=== PATIENT | male | born 1965 | race Native Hawaiian/Other Pacific Islander ===

== ENCOUNTER 2018-10-23 14:05 | Emergency (ER) | payer OTHER ==
[~2018-10-23] VITALS: Ht 182.9 cm; Wt 124.7 kg
[~2018-10-23 14:05] MED LIST: CEPHALEXIN500 MG PO
[2018-10-23 14:12] VITALS: BP 126/78; TEMP 97.2
[2018-10-23 14:31] LABS: PLATELET COUNT 280 K/uL (142-355)
[2018-10-23 14:41] LABS: POTASSIUM 4.3 mmol/L (3.6-5.2)
[2018-10-23] MEDS ORDERED: FENT50DI TD (16:49)
[2018-10-23] MEDS ORDERED: NICODERM C21 MG/241 TD (16:50)
[2018-10-23] MEDS ORDERED: FURO40TA93 PO (16:50)
[2018-10-23] MEDS ORDERED: BAYER CHEWABLE81 MG PO (16:53)
[2018-10-23] MEDS ORDERED: POTASSIUM CHLO20 ME1 PO (16:55)
[2018-10-23] MEDS ORDERED: MULTIVITAMI1 PO (16:56)
[2018-10-23] MEDS ORDERED: MOBIC15 MG PO (16:56)
[2018-10-23] MEDS ORDERED: DULOXETINE HCL60 MG PO (16:57)
[2018-10-23] MEDS ORDERED: REMERON SOLTAB15 MG PO (17:00)
[2018-10-23] MEDS ORDERED: TYLENOL325 MG PO (17:38)
[2018-10-23] MEDS ORDERED: OXYC5TAB53 PO (17:39)
[2018-10-23] MEDS ORDERED: MIRALAX3350 N1 PO (17:42)
[2018-10-23] MEDS ORDERED: ASCO500T18 PO (17:43)
[2018-10-29] MEDS ORDERED: MELOXICAM7.5 MG PO (20:09)
[2018-10-29] MEDS ORDERED: DIVALPROEX500 MG PO ×2 (20:10)
== END 2018-10-23 15:15 | disposition other institution (70) ==
LOC: ED 14:05
PROVIDERS: Emergency Medicine
DX: D64.89 Other specified anemias (principal); C20 Malignant neoplasm of rectum; R46.89 Other symptoms and signs involving appearance and behavior; Z04.6 Encounter for general psychiatric examination, requested by authority
CPT/HCPCS: 80053; 85027; 93005; 99285